=== PATIENT | male | born 1975 ===

== ENCOUNTER 2018-06-11 09:25 | Emergency (ER) | payer OTHER ==
[~2018-06-11] VITALS: Ht 175.3 cm; Wt 88.5 kg
== END 2018-06-11 12:26 | disposition home or self-care (01) ==
LOC: ER 09:25
DX: R10.12 Left upper quadrant pain (principal)

== ENCOUNTER 2022-03-15 00:10 | Inpatient (IN) | payer OTHER ==
[~2022-03-15] VITALS: Ht 175.3 cm; Wt 103.4 kg
== END 2022-03-17 17:41 | disposition home or self-care (01) | DRG 392 ==
LOC: ER 00:10 → MEDI 09:48
PROVIDERS: ADMIT Internal Medicine; ATTEND Internal Medicine
PROC: BW21ZZZ Computerized Tomography (CT Scan) of Abdomen and Pelvis (ICD-10-PCS; principal; 2022-03-15)
DX: K57.32 Diverticulitis of large intestine without perforation or abscess without bleeding (principal); R10.32 Left lower quadrant pain; Z20.822 Contact with and (suspected) exposure to COVID-19

== ENCOUNTER 2023-02-26 08:39 | Outpatient (CLI) | payer OTHER | END 2023-02-26 08:53 | disposition home or self-care (01) | LOC: LAB 08:39 | PROVIDERS: ATTEND Orthopaedic Surgery | DX: D64.89 Other specified anemias (principal); E88.89 Other specified metabolic disorders; D68.8 Other specified coagulation defects; N39.0 Urinary tract infection, site not specified; Z22.322 Carrier or suspected carrier of Methicillin resistant Staphylococcus aureus; Z76.89 Persons encountering health services in other specified circumstances; I49.9 Cardiac arrhythmia, unspecified; I10 Essential (primary) hypertension ==

== ENCOUNTER 2023-07-30 00:49 | Emergency (ER) | payer OTHER ==
[~2023-07-30] VITALS: Ht 175.3 cm; Wt 94.3 kg
[2023-07-30 02:56] LABS: HEMATOCRIT 38.6 % (39.0-48.0); HEMOGLOBIN 13.6 g/dL (13-16.00); MEAN CELL VOLUME 86.7 fL (80.0-100.00); MEAN CORPUSCULAR HEMOGLOBIN 30.5 pg (27.00-32.0); MEAN CORPUSCULAR HGB CONC 35.2 g/dl (32.0-36.0); PLATELET COUNT 301 K/uL (150-450); RED BLOOD COUNT 4.45 M/uL (4.00-6.00); RED CELL DISTRIBUTION WIDTH 13.7 % (11.5-14.5)
[2023-07-30 03:51] LABS: ALBUMIN 3.7 gm/dL (3.4-5.0); BILIRUBIN TOTAL 0.47 mg/dL (0.3-1.2); CALCIUM 9.3 mg/dL (8.5-10.1); CREATININE SERUM 0.99 mg/dL (0.70-1.30); GFR 81.75; GLOBULINA 3.8 G/DL (2.4-3.5); POTASSIUM 3.72 mEq/L (3.5-5.1); TOTAL PROTEIN 7.5 gm/dL (6.4-8.2)
[2023-07-30 08:49] LABS: PH,URINE 5.5 (5.0-8.0); URINE APPEARANCE Cloudy; URINE BILIRRUBIN Negative (NEGATIVE); URINE BLOOD Small; URINE COLOR Yellow; URINE GLUCOSE Negative (NEGATIVE); URINE LEUKOCYTE Negative; URINE NITRATE Negative; URINE PROTEIN Negative (NEGATIVE); URINE UROBILINOGEN 0.2 E.U./dl
[2023-07-30 08:52] LABS: URINE BACTERIA 8.8 uL (0.0-1933); URINE EPITHELIAL CELLS 9.1 uL (0.0-38.8); URINE RBC 69.8 uL (0.0-20.8); URINE WBC 14.9 uL (0.0-23.2)
[2023-07-30] MEDS ORDERED: ZOFRAN8 MG PO (09:10)
[2023-07-30] MEDS ORDERED: PEPCID AC20 MG PO (09:10)
== END 2023-07-30 09:14 | disposition home or self-care (01) ==
LOC: ER 00:49
PROVIDERS: General Practice
DX: K29.00 Acute gastritis without bleeding (principal)